=== PATIENT | male | born 1990 | race Caucasian/White ===

== ENCOUNTER 2020-07-26 19:31 | Emergency (ER) | payer BC, SELFPAY ==
[2020-07-26 19:31] VITALS: BP 141/89; PULSE 69; RESP 16; TEMP 36.3; O2SAT 100; BMI 27.6
--- NOTE | 2020-07-26 20:20 | EKG12_ITS ---
Test Reason : NUMBNESS/TINGLING Blood Pressure : / mmHG Vent. Rate : 063 BPM Atrial Rate : 063 BPM P-R Int : 120 ms QRS Dur : 080 ms QT Int : 390 ms P-R-T Axes : 043 046 018 degrees QTc Int : 399 ms Normal sinus rhythm Possible Left atrial enlargement Borderline ECG Confirmed by SETH LARA, ALEKS ([id number]), editor news KEMAR BECERRIL ([id number]) on 07/28/2020 2:26:38 PM Referred By: ADA Confirmed By:ALEKS ANN MD
--- NOTE | 2020-07-26 20:21 | ED.VIS.GEN ---
History of Present Illness Chief Complaint: Numb/Ting Informant: Patient Onset: Days Context: Gradual Onset Timing: Continuous Narrative: Patient is a 30-year-old male with no significant past medical history presenting with few days of constant numbness and tingling of his right great toe as well as 1 to 2 days of intermittent tingling in his arms as well as a pinching sensation in his chest. Patient states the pinch in his chest is in his anterior chest wall and last about 10 minutes at a time. He has had a few episodes with his last episode around 4 PM today, approximately 4 hours prior to arrival. He denies any shortness of breath or difficulty breathing. He denies associated fever chills. Denies any GI or symptoms. He denies any recent illnesses or current sick contacts. He also states he gets tingling in both of his arms which sometimes relates to the sensation in his chest and other times is independent. This will last for hours at a time. Patient takes a multivitamin is on no other medications. He denies any alcohol or illicit drug use. He denies any injury or trauma to his foot. He denies any difficulty with range of motion. He denies any new shoes or new activities. He notes he does play soccer. Past Medical History - Allergies and Home Meds Allergies/Adverse Reactions: Allergies No Known Allergies Allergy (Verified 10/30/15 21:37) Primary Care Physician: NOT,DEFINED [NON-STAFF] - Past Medical History: None Surgical History: no surgical history Smoking Status: Never smoker Alcohol: None Drugs: None Review of Systems General: Denies: Chills, Fever, Sweats Eyes: Denies: Visual changes - bilaterally, Diplopia ENT: Denies: Rhinorrhea, Sore throat Cardiovascular: Reports: Chest pain. Denies: Palpitations Respiratory: Denies: Dyspnea, Cough, Dyspnea on exertion Gastrointestinal: Denies: Abdominal pain, Nausea, Vomiting, Diarrhea, Melena, Hematochezia Genitourinary: Denies: Dysuria, Hematuria, Frequency Musculoskeletal: Denies: Myalgias, Arthralgias, Back pain, Swelling, Extremity Pain Skin: Denies: Rash, Wounds Neurological: Reports: Parasthesia - Arms, right great toe. Denies: Headache, Weakness, Numbness Physical Exam Vital Signs/Narrative: Vital Signs Temp Pulse Resp BP Pulse Ox 07/26/20 19:31 97.3 F L 69 16 141/89 H 100 Inital Vital Signs reviewed: Yes General: Well nourished, Well developed, No Acute Distress Head: Normocephalic, Atraumatic Eyes: Perrl, EOMI ENT: Moist mucous membranes, No rhinorrhea Neck: Supple, Nontender Cardiovascular: Regular rate, Regular rhythm, No murmurs Respiratory: No distress, CTA bilaterally, Chest nontender Abdomen: Soft, Nontender, Nondistended, Normal bowel sounds Back: Nontender, Normal Inspection Extremities: Nontender, No edema Skin: Normal color, No rash Neurological: Alert, Oriented x3, Cranial nerves II-XII grossly intact, Normal Strength, Normal Sensation, Parasthesia - Right great toe diffusely., - - 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 NIH equals 0. Negative for: Weakness, Left side facial droop, Right side facial droop Psychological: Normal affect, Normal Mood Diagnostic/Tx/Re-eval Chest X-Ray - ED: 2 View, Read by ED Physician, Read by Radiologist, No Acute Disease Clinical Impression(s) from Imaging Studies Chest X-Ray 07/26/20 20:40 IMPRESSION: Normal x-ray examination of the chest. Electronically Signed: Da DO Elisa at 20:53 EST Tel , Service support , Laboratory Data 07/26/20 07/26/20 20:55 20:55 WBC 7.9 RBC 4.88 Hgb 15.5 Hct 43.1 MCV 88.3 MCH 31.8 MCHC 36.0 RDW Std Deviation 38.2 RDW Coeff of Rudy 11.9 Plt Count 165 MPV 11.1 Immature Gran % (Auto) 0.400 Neut % (Auto) 70.5 H Lymph % (Auto) 24.2 [place] % (Auto) 3.8 Eos % (Auto) 0.8 Baso % (Auto) 0.3 Absolute Neuts (auto) 5.5 Absolute Lymphs (auto) 1.90 Nucleated RBC % 0 Sodium 140 Potassium 3.6 Chloride 106 Carbon Dioxide 28.0 Anion Gap 6 BUN 15 Creatinine 1.02 Estim Creat Clear Calc 108.35 Est GFR (MDRD) Af Amer 109 Est GFR (MDRD) Non-Af 90 BUN/Creatinine Ratio 14.7 Glucose 96 Calcium 9.2 Troponin I < 0.015 - Rhythm Strip Rhythm Strip: Sinus Rhythm Rate: 63 Ectopy: None - EKG Initial EKG Interpretation: Sinus Rhythm, - - Sinus rhythm at a rate of 63 Normal axis Normal intervals Normal ST segments Nonspecific T wave inversion in lead III - Medical Decision Making Patient evaluated for paresthesias of his great toe as well as paresthesias of his arms and intermittent chest pain. Last episode chest pain was 4 hours prior to arrival patient is currently asymptomatic. He is low risk for ACS. His EKG is not consistent with any acute cardiac process such as ACS, pericarditis/endocarditis or pericardial effusion. Patient is PERC negative. Do not suspect a PE and I do not think a D-dimer is indicated as he is low risk. Given his odd paresthesias I did check some basic labs to make sure that he was not a new onset diabetic or do not have any significant electro abnormalities. Lab work is normal. Troponin is negative. Chest x-ray does not show any acute process. Patient has a normal neurologic exam and does have sensation intact to light touch. I do not think a head CT or LP is indicated at this time. Patient is counseled exact cause of his symptoms or not clear however he does not need to be admitted. He will be referred to PCP on-call for outpatient follow-up. Patient is counseled on signs and symptoms requiring return to the emergency room. Patient verbalizes agreement and understand this plan. Patient discharged home in stable condition. ED Disposition - Plan for ED Patient: Disposition: Home or Assisted Living Diagnosis: Paresthesias, Chest pain Instructions: ED Chest Pain Atypical Unkn Cause, ED Paraesthesias Referrals: Carmen Carey MD [STAFF PHYSICIAN] - Additional Instructions: The exact cause of your symptoms is not clear however think you are safe to follow-up with a primary care doctor. He been referred to 1 today. Please return if you have difficulty breathing, significant worsening chest pain or weakness of the arms or legs.
--- NOTE | 2020-07-26 20:40 | RAD_ITS ---
STUDY: X-RAY CHEST REASON FOR EXAM: Male, 30 years old. NUMBNESS AND TINGLING IN RIGHT BIG TOE STARTED TUESDAY. LEFT ARM STARTED TODAY. TECHNIQUE: PA and lateral views of the chest. COMPARISON: None. FINDINGS: The lungs are clear and expanded. There is no demonstrated pleural abnormality. Normal size heart. Normal mediastinum and jenifer. Normal visualized pulmonary arteries. Normal visualized aortic arch and descending thoracic aorta. Normal visualized thoracic spine. Normal visualized ribs, clavicles, and shoulders. There is no demonstrated abnormality of the visualized soft tissue structures of the upper abdomen. RAD/Chest PA and Lateral IMPRESSION: Normal x-ray examination of the chest. Electronically Signed: Da Pérez DO at 20:53 EST Tel , Service support ,
[2020-07-26 21:04] LABS: Absolute Neutrophil Count 5.5 X10^3/uL (2.0-7.7); Basophil# 0.02 X10^3/uL; Basophil% 0.3 % (0-1); Eosinophil# 0.06 X10^3/uL; Eosinophils% 0.8 % (0-5); Hematocrit 43.1 % (40-54); Hemoglobin 15.5 g/dL (13.0-16.5); Lymphocyte % 24.2 % (19-41); Mean Corpuscular Hgb 31.8 pg (27.0-32.0); Mean Corpuscular Volume 88.3 fL (80-94); Mean Platelet Vol. 11.1 fl (6.2-12.0); Monocyte% 3.8 % (0-10); NRBC Flagged by Analyzer 0 % (0-5); Neutrophil # 5.54 X10^3/uL (2.7-7.7); Neutrophil % 70.5 % (47-70); Platelet Count 165 K/mm3 (150-450); RBC Distribution Width CV 11.9 % (11.6-14.6); RBC Distribution Width SD 38.2 fl (35.1-43.9); Red Blood Count 4.88 M/mm3 (4.6-6.2); White Blood Count 7.9 K/mm3 (4.4-11.0)
[2020-07-26 21:35] LABS: Anion Gap 6 (5-15); BUN 15 mg/dL (7-18); BUN/Creat Ratio 14.7 RATIO (10-20); Calcium,Total 9.2 mg/dL (8.5-10.1); Chloride 106 mmol/L (98-107); Creatinine, Serum 1.02 mg/dL (0.70-1.30); EST Glomerular Filtration Rate 90 mL/min (>60); Est Glom Filt Rate - Afr Amer 109 mL/min (>60); Estimated Creatinine Clearance 108.35 ml/min; Glucose 96 mg/dL (74-106); Potassium 3.6 mmol/L (3.5-5.1); Sodium Level 140 mmol/L (136-145)
[2020-07-26 21:59] VITALS: RESP 18
== END 2020-07-26 21:59 | disposition home or self-care (01) ==
PROVIDERS: Emergency Provider Emergency Medicine
DX: R20.2 Paresthesia of skin (principal); R07.89 Other chest pain
CPT/HCPCS: 36415; 71046; 80048; 84484; 85025; 93005; 99282

== ENCOUNTER 2024-02-20 03:57 | Emergency (ER) | payer BC, SELFPAY ==
[2024-02-20 03:57] VITALS: BP 123/72; PULSE 69; RESP 16; TEMP 36.8; O2SAT 99; BMI 29.7
[2024-02-20 04:13] VITALS: BP 123/72; PULSE 69; RESP 16; TEMP 36.8; O2SAT 96
--- NOTE | 2024-02-20 04:30 | RAD_ITS ---
INDICATION: Hemoptysis with cough, fever EXAMINATION/TECHNIQUE: X-RAY - XR Chest 2 Views COMPARISON: 07/26/2020 chest radiographs. Findings: Frontal and lateral views of the chest. LUNG PARENCHYMA: No acute focal airspace disease or mass lesion. PLEURA: No pleural effusion. No pneumothorax. HEART/GREAT VESSELS: Cardiomediastinal silhouette is unremarkable. BONES: Osseous structures are unremarkable for age. RAD/Chest PA and Lateral IMPRESSION: Chest with no acute disease. Electronically Signed: Ashish Horner MD at 5:08 EDT ,
[2024-02-20 04:33] LABS: Absolute Lymphocyte Count 2.94 X10^3/uL (0.83-4.51); Absolute Neutrophil Count 4.5 X10^3/uL (2.0-7.7); Basophil# 0.05 X10^3/uL; Basophil% 0.6 % (0-1); Eosinophils% 3.6 % (0-5); Hematocrit 41.4 % (40-54); Hemoglobin 14.9 g/dL (13.0-16.5); Lymphocyte # 2.94 X10^3/ul (0.83-4.51); Lymphocyte % 35.1 % (19-41); Mean Corpuscular Hgb 31.5 pg (27.0-32.0); Mean Corpuscular Volume 87.5 fL (80-94); Mean Platelet Vol. 10.2 fl (6.2-12.0); NRBC Flagged by Analyzer 0 % (0-5); Neutrophil # 4.54 X10^3/uL (2.7-7.7); Neutrophil % 54.2 % (47-70); Platelet Count 161 K/mm3 (150-450); RBC Distribution Width SD 38.5 fl (35.1-43.9); Red Blood Count 4.73 M/mm3 (4.6-6.2); White Blood Count 8.4 K/mm3 (4.4-11.0)
[2024-02-20 04:55] LABS: Anion Gap 8 (5-15); BUN 13 mg/dL (7-18); BUN/Creat Ratio 13.4 RATIO (10-20); Calcium,Total 8.6 mg/dL (8.5-10.1); Chloride 106 mmol/L (98-107); Creatinine, Serum 0.97 mg/dL (0.70-1.30); EST Glomerular Filtration Rate 93 mL/min (>60); Est Glom Filt Rate - Afr Amer 113 mL/min (>60); Estimated Creatinine Clearance 123.61 ml/min; Glucose 114 mg/dL (74-106); Potassium 3.5 mmol/L (3.5-5.1); Sodium Level 139 mmol/L (136-145)
--- NOTE | 2024-02-20 04:59 | EX.ED.DYSGE1 ---
HPI History of Present Illness Chief Complaint: Fever Detail of Chief Complaint: Not feeling well, subjective fever, sweating and fell twice. Informant: patient and spouse/S.O. Onset/Context/Timing Onset: Days (Tuesday, February 16) Context: Sudden Onset Timing: Continuous and Waxes and wanes Quality: Does not feel well Location: Generalized Current Severity: Mild Maximum Severity: Moderate Worsened by: Nothing Relieved by: Nothing Associated Symptoms Associated Symptoms: Subjective fever, sweating, nasal congestion, blood-tinged sputum with coug Narrative Narrative: Patient is a 33-year-old male with no significant past medical history. He is a non-smoker. There is no history of VTE. He denies leg pain, swelling discoloration. He does endorse subjective fever. He is been sweaty over the last couple of days. He denies headache, visual, ocular auditory symptoms. He reports mild nasal congestion. Denies sore throat. Does have a cough. Cough is productive of clear sputum with blood-tinged sputum noted recently. He denies chest pain of any type. He denies pain with breathing. He denies dyspnea or dyspnea on exertion. He denies abdominal pain. He denies nausea, vomiting or diarrhea. He denies urologic symptoms. He denies rash. He denies myalgias or arthralgias. He has fallen twice for lightheadedness. Prior similar symptoms: No Recent Illness/Hospitalization: No PFSH PFSH Medical History no medical history Home Medications ?Medication ?Instructions ?Recorded ?Last Taken ?Type NK 07/26/20 Unknown History Allergy/AdvReac Type Severity Reaction Status Date / Time No Known Allergies Allergy Verified 02/20/24 03:58 Surgical History no surgical history Social History (Updated 02/20/24 @ 05:[address] Jacky Ware MD) household members: spouse Smoking Status: Never smoker ROS ROS ED Constitutional Constitutional ED: Reports chills, fever(s), subjective and sweats; Denies weight loss Eyes Eyes: Denies blurry vision or change in vision ENT ENT ED: Denies ear pain, rhinorrhea or sore throat Cardiovascular Cardiovascular: Denies chest pain, orthopnea, palpitations, paroxysmal nocturnal dyspnea or racing heartbeat Respiratory/Chest Respiratory/Chest: Reports cough and sputum; Denies dyspnea, dyspnea on exertion, orthopnea or paroxysmal nocturnal dyspnea Gastrointestinal Gastrointestinal: Denies abdominal pain, diarrhea or vomiting Genitourinary Genitourinary ED: Denies dysuria, hematuria or urinary frequency Musculoskeletal Musculoskeletal: Denies arthralgias, back pain or myalgias Integumentary Denies rash Neurologic Neurologic: Reports weakness; Denies headache(s) Hematologic/Lymphatic Hematologic/Lymphatic: Reports systems reviewed and no addt'l complaints, except as documented EXAM Physical Exam Const Vital Signs: 02/20/24 03:57 02/20/24 03:57 02/20/24 04:13 Temperature 98.2 F 98.2 F Temperature Source Oral Oral Pulse Rate 69 69 Respiratory Rate 16 16 Respiratory Pattern Normal Blood Pressure 123/72 H 123/72 H Blood Pressure Mean 89 89 Pulse Ox 99 96 Oxygen Delivery Method 02/20/24 05:13 Temperature 98.3 F Temperature Source Oral Pulse Rate 61 Respiratory Rate 16 Respiratory Pattern Blood Pressure 110/66 Blood Pressure Mean 80 Pulse Ox 98 Oxygen Delivery Method Room Air Positive well nourished and well developed Constitutional Narrative: Patient appears ill. He is slightly pale. He is sweaty. Vital signs are remarkable for slight elevation in blood pressure. General Appearance ED: well developed, NAD and pallor HEENT Reports dry mucous membranes HEENT Narrative: Head is atraumatic normocephalic. Ears normal. Nares patent. Posterior pharyngeal erythema or exudate. Mouth ED: Yes dry mucous membranes Mouth: dry mucous membranes Eyes PERRL and EOMs intact bilaterally General Eye ED: Negative for pale conjunctiva or scleral icterus Neck no lymphadenopathy, supple and no JVD Chest Wall palpation of chest normal Resp normal respiratory effort and clear to auscultation bilaterally Cardio regular rate, regular rhythm, S1 normal heart sound, S2 normal heart sound and no murmurs GI normal to inspection, nondistended, normoactive bowel sounds, non-tender, non-distended and hepatosplenomegaly; Negative for no masses Palpation: soft Back/Spine no CVA tenderness Extremity Extremity Narrative: There is no asymmetry, swelling, discoloration, leg vein distention, palpable cords or tenderness along the distribution of the deep venous system. Neuro oriented x3, CN's II-XII intact bilaterally and no sensory deficits noted Sensorium / Orientation: alert Motor Exam: strength 5/5 throughout Psych mental status grossly normal Skin no rashes or lesions noted, no wounds and skin turgor normal General Skin Exam: pallor; Negative for elasticity normal or jaundice MDM MDM MDM Narrative Medical decision making narrative: Symptoms are consistent with upper respiratory infection and hemoptysis with cough. Will obtain chest x-ray to rule out pneumonia. Since he is not tachycardic tachypneic or hypoxic doubt PE. Wells score for PE is 1 point. Likelihood is 3%. Patient's symptoms are more consistent with a respiratory infection than they are for PE. He has no historical or physical findings suggest DVT. Lab Data Attestation: I reviewed the patient's lab results. Lab results narrative: CBC is normal. Basic metabolic panel is normal. Labs: Laboratory Results - last 24 hr 02/20/24 04:20 WBC 8.4 RBC 4.73 Hgb 14.9 Hct 41.4 MCV 87.5 MCH 31.5 MCHC 36.0 RDW Std Deviation 38.5 RDW Coeff of Rudy 12.0 Plt Count 161 MPV 10.2 Immature Gran % (Auto) 0.500 Neut % (Auto) 54.2 Lymph % (Auto) 35.1 Walsh % (Auto) 6.0 Eos % (Auto) 3.6 Baso % (Auto) 0.6 Absolute Neuts (auto) 4.5 Absolute Lymphs (auto) 2.94 Nucleated RBC % 0 Sodium 139 Potassium 3.5 Chloride 106 Carbon Dioxide 25.0 Anion Gap 8 BUN 13 Creatinine 0.97 Estim Creat Clear Calc 123.61 Est GFR (MDRD) Af Amer 113 Est GFR (MDRD) Non-Af 93 BUN/Creatinine Ratio 13.4 Glucose 114 H Lactic Acid 1.6 Calcium 8.6 Radiography Chest X-Ray - ED: 2 View, Read by ED Physician, Normal, Heart, Lungs, Mediastinum, Bony Structures and No Acute Disease Diagnostic Testing: Clinical Impression(s) from Imaging Studies Chest X-Ray 02/20/24 04:30 IMPRESSION: Chest with no acute disease. Electronically Signed: Ashish Horner MD at 5:08 EDT , Rhythm Strip Rhythm Strip: Sinus Rhythm Rate: 68 Treatment and Re-Evaluation :: Patient and were informed of results. Plan is to discharge to home. Discharge Plan Triage Chief Complaint: Fever ED Provider: Jacky Ware Dx/Rx/DC Orders Clinical Impression: Cough with hemoptysis, Upper respiratory disease Instructions: ED Hemoptysis Prescriptions: No Action NK Primary Care Provider: Jasper Whalen NP Referrals: Jasper Whalen EMBOSSOGRAPH OPERATOR, EMBOSSOGRAPH OPERATOR-C [Primary Care Provider] - 3-5 Days if not improving Print Language: Chinese Disposition Disposition: Home, Self Care
[2024-02-20 05:00] LABS: Lactic Acid 1.6 mmol/L (0.4-1.9)
[2024-02-20 05:13] VITALS: BP 110/66; PULSE 61; RESP 16; TEMP 36.8; O2SAT 98
[2024-02-20 05:49] VITALS: BP 115/63; PULSE 69; RESP 15; TEMP 36.7; O2SAT 99
== END 2024-02-20 05:50 | disposition home or self-care (01) ==
PROVIDERS: Emergency Provider Emergency Medicine; PCP Nurse Practitioner Primary Care; Visit Provider Emergency Medicine
DX: R50.9 Fever, unspecified (principal); J06.9 Acute upper respiratory infection, unspecified; R04.2 Hemoptysis; R05.9 Cough, unspecified
CPT/HCPCS: 71046; 80048; 83605; 85025; 99284; A4216